=== PATIENT | male | born 1965 | race Caucasian/White ===

== ENCOUNTER 2020-08-15 23:03 | Inpatient (IN) | payer OTHER ==
[~2020-08-15] VITALS: Ht 172.7 cm; Wt 106.9 kg
[~2020-08-15 23:03] MED LIST: CARV12.544 PO; CEPH500C PO; CHOL20002 PO; CLO01T PO; CLOP75TA41 PO; FURO40TA4 PO; GLIP10TA9 PO; HYDR50TA15 PO; INSRTEST SC; INSUINJ48 SC; LEVO50TA7 PO; METF-370 PO; METO25TA5 PO; POTA10TA51 PO; ROSU10TA16 PO
[2020-08-15] MEDS ORDERED: cloNIDine HCL 0.1 MG TAB PO ONE (23:30)
[2020-08-15 23:58] LABS: Basophils # (auto) 0.1 10 ^3/uL (0-0.2); Basophils % (auto) 0.9 % (0.0-2.0); Eosinophils # (auto) 0.1 10 ^3/uL (0-0.8); Eosinophils % (auto) 0.8 % (0.0-7.0); Hemoglobin 13.7 g/dL (13.5-17.5); Lymphocytes # (auto) 1.6 10 ^3/uL (0.4-5.4); Lymphocytes % (auto) 13.4 % (10.0-50.0); Mean Corpuscular Hemoglobin 25.8 pg (28.0-32.0); Mean Corpuscular Hgb Conc. 32.5 g/dL (32.0-36.0); Mean Corpuscular Volume 79.4 fL (80.0-100.0); Monocytes # (auto) 1.3 10 ^3/uL (0-1.3); Monocytes % (auto) 10.6 % (0.0-12.0); Neutrophils % (auto) 74.3 % (37.0-80.0); Platelet Count (auto) 192 10^3/uL (140-450); Red Blood Cells 5.29 10^6/uL (4.5-5.90); Red Cell Distribution Width 16.8 % (11.8-14.3); White Blood Cell 12.2 10^3/uL (4.4-10.8)
[2020-08-16 00:17] LABS: Albumin 3.6 g/dL (3.4-5.0); BUN/Creatinine Ratio 15.7; Calcium 9.3 mg/dL (8.5-10.1)
[2020-08-16 00:22] LABS: Bilirubin, Total 0.3 mg/dL (0.2-1.0); Total Protein 7.5 g/dL (6.4-8.2)
[2020-08-16 00:27] LABS: INR 1.15 (0.9-1.15)
[2020-08-16] MEDS ORDERED: IOHEXOL 350 MG/ML 100ML IJ ONE (02:26)
[2020-08-16] MEDS ORDERED: MORPHINE SULFATE 4 MG/ML SYR/VIAL IV ONE (03:15)
[2020-08-16] MEDS ORDERED: ONDANSETRON HCL 4 MG/2 ML VIAL IV ONE (03:15)
[2020-08-16 05:46] LABS: Urine Bacteria FEW /hpf (None Seen); Urine Blood Negative /uL (Negative); Urine Mucus FEW (None Seen); Urine Specific Gravity 1.025 (1.001-1.035); Urine WBC 1 /hpf (0 - 3)
[2020-08-16] MEDS ORDERED: NITROGLYCERIN 0.4 MG SL TAB SL PRN (07:30)
[2020-08-16] MEDS ORDERED: TEMAZEPAM 15 MG CAP PO PRN (07:30)
[2020-08-16] MEDS ORDERED: DOCUSATE SOD 100 MG CAP PO PRN (07:30)
[2020-08-16] MEDS ORDERED: MORPHINE SULF INJ 2 MG/ML SYRINGE 1ML IV PRN (07:30)
[2020-08-16] MEDS ORDERED: DEXTROSE (50%) 50ML SYRG IV PRN (07:30)
[2020-08-16] MEDS ORDERED: MET25T PO (07:34)
[2020-08-16] MEDS ORDERED: FUROSEMIDE 40 MG/4 ML VIAL IV ONE (07:45)
[2020-08-16 07:56] LABS: Cholesterol 111 mg/dL (< 200)
[2020-08-16 07:58] LABS: HDL Cholesterol 37 mg/dL (40-59); LDL Cholesterol 64 mg/dL (< 100); Triglycerides 114 mg/dL (< 150)
--- NOTE | 2020-08-16 09:55 | NUR ---
Telemetry admit from ER KAROLINA GRIMES admitted to Telemetry unit after SBAR received. Patient oriented to CHRISTY LUA, RN primary RN, unit, room, bed, and unit policies regarding patient care and visiting hours. Patient now on continuous telemetry monitoring, tele box # [id number] and telemetry reading on arrival to unit is sinus bradycardia. Patient weighed by bedscale and encouraged to call if they need something. All questions and concerns addressed, patient verbalized understanding.
[2020-08-16] MEDS ORDERED: LEVOTHYROXINE SODIUM 50 MCG TAB PO SCH (10:00)
[2020-08-16] MEDS ORDERED: OPTISON 3ml Vial for INJ IV ONE (10:48)
[2020-08-16 11:01] VITALS: BP 141/62
[2020-08-16] MEDS: FAMOTIDINE 20 MG TAB PO SCH ×2 (11:01→20:58)
[2020-08-16] MEDS: CARVEDILOL 12.5 MG TAB PO SCH ×2 (11:01→20:58)
--- NOTE | 2020-08-16 11:12 | NUR ---
OPTISON ADMINISTERED WITH PRESCHOOL TEACHER AT BEDSIDE. ADMINISTERED 2ML OF MEDICATION. PATIENT TOLERATED WELL. NO SIGNS OR SYMPTOMS OF ADVERSE EFFECTS.
[2020-08-16] MEDS: ACCU-CHEK COMFORT CURVE STRIP VI SCH ×3 (11:58→21:55)
[2020-08-16] MEDS: InsuLIN REG 1unit/0.01ml Soln (100units/ml) SC SCH ×3 (11:58→21:54)
[2020-08-16 12:32] VITALS: BP 148/78
[2020-08-16 12:44] VITALS: BP 148/78
--- NOTE | 2020-08-16 15:30 | NUR ---
WOUND CARE NOTE: WOUND CARE IN TO SEE PATIENT PER WOUND CARE REQUEST. PATIENT ADMITTED TO [facility] FOR NSTEMI AND BILATERAL FLANK PAIN. BEDSIDE NURSE NOTED SKIN INTEGRITY ISSUES UPON ADMISSION. PHOTOGRAPHS TAKEN AT THAT TIME FOR REFERENCE. PATIENT ANANT SCORE IS 20. PATIENT NOTED TO HAVE MULTIPLE HEALING STASIS ULCERS ON BILATERAL LOWER LEGS. THERAHONEY AND OPTIFOAM GENTLE DRESSING APPLIED TO HEALING WOUND ON RIGHT FELIZ. RECOMMEND: DAILY/PRN DRESSING CHANGE TO RIGHT FELIZ. SKIN/WOUND CARE PLAN. CONTINUED MONITORING BY WOUND CARE TEAM. Addendum: 08/16/20 at 1635 by ANGELINA BAUMAN RN RN Amended: Links added.
[2020-08-16 16:38] VITALS: BP 156/84
--- NOTE | 2020-08-16 19:29 | NUR ---
ENDORSED CARE TO NOC SHIFT RN
--- NOTE | 2020-08-16 20:00 | NUR ---
Opening Shift Note Assumed care of patient, awake and alert. No S/S of distress/SOB or pain. Instructed on POC and to call for assist PRN, will continue to monitor for changes Q1hr and PRN.
[2020-08-16] MEDS: MORPHINE SULFATE 4 MG/ML SYR/VIAL IV PRN (20:57)
[2020-08-16] MEDS: ATORVASTATIN 20 MG TAB PO SCH (20:58)
[2020-08-16] MEDS: INSULIN LANTUS (GLARGINE) 1 /0.01ml (100units/ml) SC SCH (21:55)
[2020-08-16 22:00] VITALS: BP 161/79
[2020-08-17 05:00] VITALS: BP 154/78
[2020-08-17] MEDS: MORPHINE SULFATE 4 MG/ML SYR/VIAL IV PRN ×3 (05:56→19:46)
[2020-08-17] MEDS: ACCU-CHEK COMFORT CURVE STRIP VI SCH ×4 (05:57→21:30)
[2020-08-17] MEDS: InsuLIN REG 1unit/0.01ml Soln (100units/ml) SC SCH ×4 (06:09→21:29)
[2020-08-17] MEDS: LEVOTHYROXINE SODIUM 50 MCG TAB PO SCH (06:11)
--- NOTE | 2020-08-17 07:31 | NUR ---
Report given to Luli Smith, patient is resting no distress.
[2020-08-17] MEDS ORDERED: FUROSEMIDE 40 MG/4 ML VIAL IV ONE (07:45)
--- NOTE | 2020-08-17 07:54 | NUR ---
Opening Shift Note Assumed care of patient, awake and alertx4. No S/S of distress/SOB or pain. Instructed on POC and to call for assist PRN. Bed at lowest locked position and call light within reach. Will continue to monitor for changes Q1hr and PRN.
[2020-08-17 08:00] VITALS: BP 165/71
[2020-08-17 08:59] LABS: Basophils # (auto) 0.1 10 ^3/uL (0-0.2); Eosinophils # (auto) 0.2 10 ^3/uL (0-0.8); Neutrophils # (auto) 6.1 10 ^3/uL (1.6-8.6)
[2020-08-17 09:00] VITALS: BP 165/71
[2020-08-17 09:01] LABS: Basophils % (auto) 0.7 % (0.0-2.0); Hematocrit 38.3 % (41.0-53.0); Hemoglobin 12.7 g/dL (13.5-17.5); Lymphocytes # (auto) 1.1 10 ^3/uL (0.4-5.4); Lymphocytes % (auto) 13.8 % (10.0-50.0); Mean Corpuscular Hemoglobin 25.8 pg (28.0-32.0); Mean Corpuscular Hgb Conc. 33.1 g/dL (32.0-36.0); Mean Corpuscular Volume 77.9 fL (80.0-100.0); Monocytes # (auto) 0.8 10 ^3/uL (0-1.3); Monocytes % (auto) 10.1 % (0.0-12.0); Neutrophils % (auto) 73.4 % (37.0-80.0); Platelet Count (auto) 217 10^3/uL (140-450); Red Blood Cells 4.92 10^6/uL (4.5-5.90); Red Cell Distribution Width 16.6 % (11.8-14.3); White Blood Cell 8.3 10^3/uL (4.4-10.8)
[2020-08-17 09:15] LABS: Albumin 3.3 g/dL (3.4-5.0); Calcium 8.9 mg/dL (8.5-10.1); Magnesium 2.5 mg/dL (1.6-2.6); Potassium 3.8 mmol/L (3.5-5.1)
[2020-08-17 09:21] LABS: BUN/Creatinine Ratio 12.4; Bilirubin, Total 0.4 mg/dL (0.2-1.0); Total Protein 6.7 g/dL (6.4-8.2)
[2020-08-17] MEDS: ONDANSETRON HCL 4 MG/2 ML VIAL IV PRN ×2 (09:40→19:47)
[2020-08-17] MEDS: CARVEDILOL 12.5 MG TAB PO SCH ×3 (09:42→21:17)
[2020-08-17] MEDS: ENOXAPARIN SOD 40 MG/0.4 ML SYRINGE SC SCH (09:42)
[2020-08-17] MEDS: FAMOTIDINE 20 MG TAB PO SCH ×2 (09:42→21:16)
[2020-08-17] MEDS: INSULIN LANTUS (GLARGINE) 1 /0.01ml (100units/ml) SC SCH ×2 (09:43→21:29)
[2020-08-17] MEDS ORDERED: SACUBITRIL-VALSARTAN 24mg/26mg TAB PO ONE (10:45)
[2020-08-17] MEDS ORDERED: cloNIDine HCL 0.1 MG TAB PO PRN (11:30)
[2020-08-17] MEDS ORDERED: FUROSEMIDE 20 MG/2 ML VIAL IV ONE (11:30)
[2020-08-17] MEDS ORDERED: NIFEdipine ER 30 MG TAB PO ONE (11:30)
--- NOTE | 2020-08-17 12:11 | NUR ---
PATIENT C/O ABDOMINAL PAIN, RATES IT 06/17. Will medicate per MD orders.
--- NOTE | 2020-08-17 12:28 | NUR ---
1215 08/17/20 - Faxed to [employer] at [phone], face sheet, order for life vest, H/P, ECHO, cardiology consult. Pending review and delivery to patient at bedside.
[2020-08-17] MEDS ORDERED: LACTULOSE 20Gm/30ML SOLN PO ONE (12:45)
--- NOTE | 2020-08-17 12:46 | NUR ---
PAIN RE-ASSESSMENT NO C/O PAIN, PAIN LEVEL 0. PATIENT IS COMFORTABLY RESTING IN BED, NO S/S OF DISTRESS/SOB NOTED /STATED.
[2020-08-17 13:00] VITALS: BP 152/76
[2020-08-17 17:00] VITALS: BP 162/80
[2020-08-17] MEDS: FUROSEMIDE 20 MG/2 ML VIAL IV SCH (17:57)
--- NOTE | 2020-08-17 18:58 | NUR ---
closing note patient is comfortably resting in bed, no s/s of distress/sob noted/stated. bed at lowest locked position and call light within reach. Will endorse care to NOC RN.
--- NOTE | 2020-08-17 20:00 | NUR ---
Opening Shift Note Assumed care of patient, awake and alert. No S/S of distress/SOB or pain. Instructed on POC and to call for assist PRN, will continue to monitor for changes Q1hr and PRN.Dressing in the right marquez dry and intact.
--- NOTE | 2020-08-17 21:00 | NUR ---
IV insertion IV access obtained, via clean sterile technique by inserting 22 gauge catheter at left forearm after attempt by Luli Francois. IV secured properly. No trauma to site. Patient tolerated procedure well.
--- NOTE | 2020-08-17 21:00 | NUR ---
IV removal IV DC'd with sterile technique in the right forearm, catheter fully intact. Pressure dressing applied to site. Patient tolerated procedure well. Discharged with aftercare instructions per MD. NOTE: i.v.line is leaking.
[2020-08-17] MEDS: ATORVASTATIN 20 MG TAB PO SCH (21:16)
[2020-08-17] MEDS: SACUBITRIL-VALSARTAN 24mg/26mg TAB PO SCH (21:30)
[2020-08-17 22:00] VITALS: BP 152/71
[2020-08-18 05:00] VITALS: BP 141/70
[2020-08-18] MEDS: FUROSEMIDE 20 MG/2 ML VIAL IV SCH ×2 (05:35→18:00)
[2020-08-18] MEDS: LEVOTHYROXINE SODIUM 50 MCG TAB PO SCH (06:20)
[2020-08-18] MEDS: ACCU-CHEK COMFORT CURVE STRIP VI SCH ×4 (06:21→22:24)
[2020-08-18] MEDS: InsuLIN REG 1unit/0.01ml Soln (100units/ml) SC SCH ×4 (06:24→22:25)
--- NOTE | 2020-08-18 07:00 | NUR ---
Dressing of the right marquez done as ordered, noted that the wound has small amount of pus in the middle of the wound.
--- NOTE | 2020-08-18 07:36 | NUR ---
Report given to Luli Smith, patient is resting no distress.
[2020-08-18 09:00] VITALS: BP 148/77
[2020-08-18] MEDS ORDERED: METOPROLOL SUCCINATE XL 50 MG TAB PO ONE (09:26)
[2020-08-18] MEDS: INSULIN LANTUS (GLARGINE) 1 /0.01ml (100units/ml) SC SCH ×2 (10:00→22:26)
[2020-08-18] MEDS: CARVEDILOL 12.5 MG TAB PO SCH ×2 (10:00→22:23)
[2020-08-18] MEDS: SACUBITRIL-VALSARTAN 24mg/26mg TAB PO SCH ×2 (10:00→22:23)
[2020-08-18] MEDS: ENOXAPARIN SOD 40 MG/0.4 ML SYRINGE SC SCH (10:00)
[2020-08-18] MEDS: NIFEdipine ER 30 MG TAB PO SCH (10:00)
[2020-08-18] MEDS: FAMOTIDINE 20 MG TAB PO SCH ×2 (10:00→22:24)
[2020-08-18] MEDS: MORPHINE SULFATE 4 MG/ML SYR/VIAL IV PRN ×3 (11:10→23:16)
[2020-08-18 13:00] VITALS: BP 151/71
--- NOTE | 2020-08-18 14:32 | NUR ---
1420 08/18/20 - [employer] patient services representative will visit patient today at bedside for vest fitting.
[2020-08-18 17:00] VITALS: BP 131/73
--- NOTE | 2020-08-18 19:30 | NUR ---
closing note patient is comfortably resting in bed, no s/s of distress/sob noted/stated. bed at lowest locked position and call light within reach. care endorsed to noc rn.
--- NOTE | 2020-08-18 19:30 | NUR ---
Opening Shift Note Assumed care of patient, awake and alert. No S/S of distress/SOB or pain. Updated on POC and to call for assist PRN, patient verbalized understanding. Bed in lowest position, call light within reach, will continue to monitor for changes Q1hr and PRN.
[2020-08-18 20:00] VITALS: BP 143/70
[2020-08-18] MEDS: ATORVASTATIN 20 MG TAB PO SCH (22:23)
[2020-08-18 22:30] VITALS: BP 143/70
[2020-08-19 05:26] VITALS: BP 142/68
--- NOTE | 2020-08-19 05:45 | NUR ---
Wound dressing changed as ordered
[2020-08-19] MEDS: ACCU-CHEK COMFORT CURVE STRIP VI SCH ×3 (05:46→17:00)
[2020-08-19] MEDS: FUROSEMIDE 20 MG/2 ML VIAL IV SCH (05:46)
[2020-08-19] MEDS: InsuLIN REG 1unit/0.01ml Soln (100units/ml) SC SCH ×3 (05:50→17:00)
[2020-08-19 06:56] LABS: Basophils # (auto) 0.1 10 ^3/uL (0-0.2); Basophils % (auto) 0.7 % (0.0-2.0); Eosinophils # (auto) 0.2 10 ^3/uL (0-0.8); Eosinophils % (auto) 2.8 % (0.0-7.0); Hematocrit 43.7 % (41.0-53.0); Hemoglobin 14.1 g/dL (13.5-17.5); Lymphocytes % (auto) 12.9 % (10.0-50.0); Mean Corpuscular Hemoglobin 25.6 pg (28.0-32.0); Mean Corpuscular Hgb Conc. 32.2 g/dL (32.0-36.0); Mean Corpuscular Volume 79.6 fL (80.0-100.0); Monocytes % (auto) 12.6 % (0.0-12.0); Neutrophils # (auto) 5.5 10 ^3/uL (1.6-8.6); Nucleated Red Blood Cells % 0.1 %; Platelet Count (auto) 225 10^3/uL (140-450); Red Blood Cells 5.49 10^6/uL (4.5-5.90); Red Cell Distribution Width 17.3 % (11.8-14.3); White Blood Cell 7.7 10^3/uL (4.4-10.8)
[2020-08-19] MEDS: LEVOTHYROXINE SODIUM 50 MCG TAB PO SCH (07:03)
[2020-08-19 07:16] LABS: Albumin 3.2 g/dL (3.4-5.0); Calcium 8.5 mg/dL (8.5-10.1)
[2020-08-19 07:21] LABS: BUN/Creatinine Ratio 14.4; Bilirubin, Total 0.4 mg/dL (0.2-1.0); Total Protein 7.1 g/dL (6.4-8.2)
--- NOTE | 2020-08-19 07:50 | NUR ---
OPENING NOTE ASSUMED CARE OF PT. ALERT AND ORIENTED. NO S/S OF SOB/DISTRESS NOTED. BED SET TO LOWEST POSITION/LOCKED, BEDSIDE RAILS UP X2, CALL LIGHT WITHIN REACH. INSTRUCTED PT TO CALL FOR ASSISTANCE. UPDATE ON POC. PT VERBALIZED UNDERSTANDING. WILL CONTINUE TO MONITOR Q1HR AND PRN.
[2020-08-19 09:00] VITALS: BP 164/72
[2020-08-19] MEDS: ENOXAPARIN SOD 40 MG/0.4 ML SYRINGE SC SCH (09:57)
[2020-08-19] MEDS: NIFEdipine ER 30 MG TAB PO SCH (09:58)
[2020-08-19] MEDS: FAMOTIDINE 20 MG TAB PO SCH (09:58)
[2020-08-19] MEDS: SACUBITRIL-VALSARTAN 24mg/26mg TAB PO SCH (09:58)
[2020-08-19] MEDS: CARVEDILOL 12.5 MG TAB PO SCH (09:58)
[2020-08-19] MEDS: INSULIN LANTUS (GLARGINE) 1 /0.01ml (100units/ml) SC SCH (10:03)
--- NOTE | 2020-08-19 10:43 | NUR ---
CARDIOLOGY PATIENT IS CLEARED FROM CARDIOLOGY FOR DISCHARGE.
--- NOTE | 2020-08-19 11:30 | NUR ---
CARDIO PAGED METAL BONDING PRESS OPERATOR, KITTY RE: TELE STRIP. PATIENT HAD A RUN OF GWENDOLYN WITH PVC'S AND A-FIB. AWAITING CALL BACK.
--- NOTE | 2020-08-19 11:44 | NUR ---
CARDIO SPOKE WITH MANAGER SHELLKITTY RE: TELE STRIP. PATIENT HAD A RUN OF GWENDOLYN WITH PVC'S AND A-FIB. PER MANAGER SHELL NO NEW ORDER GIVEN. WILL CONTINUE TO MONITOR.
[2020-08-19 13:00] VITALS: BP 137/61
--- NOTE | 2020-08-19 14:34 | NUR ---
Nutrition Assessment Est energy needs 6528-1342 kcal (14-18 kcal/kg BW 106.9kg) Est protein needs 70-91g (1-1.3g/kg IBW 70kg) Will monitor and reassess prn. Addendum: 08/19/20 at [address] Amended: Links added.
[2020-08-19 15:38] VITALS: BP 137/61
[2020-08-19 15:52] VITALS: BP 137/61
--- NOTE | 2020-08-19 16:43 | NUR ---
D/C Planning Per social service consult for home health safety evaluation. Faxed clinical information to [facility] beds at [facility]. Per Isabel with [facility] include [facility] beds at the [facility] they are unable to accept patient at this time. ARMAND Howard was informed in regards of contracted home health agencies.
--- NOTE | 2020-08-19 17:03 | NUR ---
Discharge Discharge instructions given as ordered. Patient is to follow up with Dr. Cadena on 09/01/2020 at 10: AM, [id number], [place] [address]. . All questions and concerns addressed. Patient verbalized understanding. IV removed with catheter intact, pressure dressing applied. Telemetry unit returned to ICU.
--- NOTE | 2020-08-19 17:39 | NUR ---
Patient taken to vehicle via wheelchair with all personal belongings, accompanied by staff and family member. No distress noted at time of departure.
--- NOTE | 2020-08-20 17:50 | NUR ---
D/C Planning [address] faxed clinical information to [facility] on 08/19/20. Toi with [facility] follow up and advised me he can accept patient and patient will be seen within 24-48hrs upon d/c day.
== END 2020-08-19 17:44 | disposition home health service (06) | DRG 280 ==
LOC: ER 23:06 → TELE 23:07 → TELE-WESTW 08-16 09:48
PROVIDERS: ADMIT Nurse Practitioner; ATTEND Nurse Practitioner
DX: I16.9 Hypertensive crisis, unspecified (principal); I21.A1 Myocardial infarction type 2; I50.23 Acute on chronic systolic (congestive) heart failure; I11.0 Hypertensive heart disease with heart failure; K80.20 Calculus of gallbladder without cholecystitis without obstruction; J45.909 Unspecified asthma, uncomplicated; E11.40 Type 2 diabetes mellitus with diabetic neuropathy, unspecified; E78.5 Hyperlipidemia, unspecified; E11.51 Type 2 diabetes mellitus with diabetic peripheral angiopathy without gangrene; E66.01 Morbid (severe) obesity due to excess calories; F17.210 Nicotine dependence, cigarettes, uncomplicated; I25.10 Atherosclerotic heart disease of native coronary artery without angina pectoris; Z79.4 Long term (current) use of insulin; Z82.49 Family history of ischemic heart disease and other diseases of the circulatory system; Z68.35 Body mass index [BMI] 35.0-35.9, adult; Z88.5 Allergy status to narcotic agent; Z88.8 Allergy status to other drugs, medicaments and biological substances; Z83.3 Family history of diabetes mellitus; Z95.1 Presence of aortocoronary bypass graft
CPT/HCPCS: 36415; 71045; 71275; 74176; 80053; 80061; 81001; 82150; 82962; 83036; 83690; 83735; 83880; 84436; 84443; 84484; 85025; 85379; 85610; 85730; 93005; 93306; 93926; 96374; 96375; G0378; J1815; J2405; Q9956

== ENCOUNTER 2020-12-12 15:04 | Inpatient (IN) | payer OTHER ==
[~2020-12-12] VITALS: Ht 172.7 cm; Wt 97.6 kg
[~2020-12-12 15:04] MED LIST changes: -CLOP75TA41 PO; +CLOP75TA70 PO; +MET25T PO
[2020-12-12 16:29] LABS: Basophils # (auto) 0.1 10 ^3/uL (0-0.2); Basophils % (auto) 0.5 % (0.0-2.0); Eosinophils # (auto) 0.1 10 ^3/uL (0-0.8); Eosinophils % (auto) 0.9 % (0.0-7.0); Hematocrit 36.7 % (41.0-53.0); Hemoglobin 12.2 g/dL (13.5-17.5); Lymphocytes # (auto) 1.2 10 ^3/uL (0.4-5.4); Lymphocytes % (auto) 12.8 % (10.0-50.0); Mean Corpuscular Hemoglobin 28.2 pg (28.0-32.0); Mean Corpuscular Hgb Conc. 33.1 g/dL (32.0-36.0); Mean Corpuscular Volume 85.1 fL (80.0-100.0); Monocytes % (auto) 10.9 % (0.0-12.0); Neutrophils # (auto) 7.1 10 ^3/uL (1.6-8.6); Neutrophils % (auto) 74.9 % (37.0-80.0); Platelet Count (auto) 243 10^3/uL (140-450); Red Blood Cells 4.32 10^6/uL (4.5-5.90); Red Cell Distribution Width 16.3 % (11.8-14.3); White Blood Cell 9.4 10^3/uL (4.4-10.8)
[2020-12-12 16:47] LABS: Albumin 3.6 g/dL (3.4-5.0); Calcium 9.3 mg/dL (8.5-10.1); Potassium 4.6 mmol/L (3.5-5.1)
[2020-12-12 16:52] LABS: BUN/Creatinine Ratio 14.6; Bilirubin, Total 0.3 mg/dL (0.2-1.0); Total Protein 7.4 g/dL (6.4-8.2)
[2020-12-12 20:07] LABS: INR 1.03 (0.9-1.15); Partial Thromboplastin Time 29.1 sec (23.0-31.2)
[2020-12-12] MEDS ORDERED: ONDANSETRON HCL 4 MG/2 ML VIAL IV ONE (22:30)
[2020-12-12] MEDS ORDERED: MORPHINE SULFATE 4 MG/ML SYR/VIAL IV ONE (22:45)
[2020-12-12] MEDS ORDERED: CARVEDILOL 12.5 MG TAB PO ONE (23:45)
[2020-12-12] MEDS ORDERED: DEXTROSE (50%) 50ML SYRG IV PRN (23:45)
[2020-12-12] MEDS ORDERED: hydrALAZINE HCL 25 MG TAB PO ONE (23:45)
[2020-12-12] MEDS ORDERED: ACETAMINOPHEN 325 MG TAB PO PRN (23:45)
[2020-12-13] MEDS: HYDROcodone-ACET 5/325MG TAB PO PRN ×3 (00:55→11:24)
[2020-12-13 05:31] LABS: Urine Bacteria FEW /hpf (None Seen); Urine Blood Negative /uL (Negative); Urine Hyaline Cast MOD /lpf (0 - 2); Urine Mucus FEW (None Seen); Urine Specific Gravity 1.022 (1.001-1.035); Urine WBC 2 /hpf (0 - 3)
[2020-12-13] MEDS ORDERED: hydrALAZINE HCL 25 MG TAB PO SCH (06:00)
[2020-12-13 06:15] LABS: Basophils # (auto) 0.1 10 ^3/uL (0-0.2); Basophils % (auto) 0.8 % (0.0-2.0); Eosinophils # (auto) 0.1 10 ^3/uL (0-0.8); Eosinophils % (auto) 0.8 % (0.0-7.0); Hematocrit 34.8 % (41.0-53.0); Hemoglobin 11.7 g/dL (13.5-17.5); Lymphocytes # (auto) 1.2 10 ^3/uL (0.4-5.4); Lymphocytes % (auto) 14.5 % (10.0-50.0); Mean Corpuscular Hemoglobin 28.3 pg (28.0-32.0); Mean Corpuscular Hgb Conc. 33.6 g/dL (32.0-36.0); Mean Corpuscular Volume 84.4 fL (80.0-100.0); Monocytes # (auto) 1.2 10 ^3/uL (0-1.3); Monocytes % (auto) 14.1 % (0.0-12.0); Neutrophils # (auto) 5.9 10 ^3/uL (1.6-8.6); Neutrophils % (auto) 69.8 % (37.0-80.0); Platelet Count (auto) 210 10^3/uL (140-450); Red Blood Cells 4.13 10^6/uL (4.5-5.90); Red Cell Distribution Width 16.1 % (11.8-14.3); White Blood Cell 8.4 10^3/uL (4.4-10.8)
[2020-12-13 06:32] LABS: BUN/Creatinine Ratio 11.9; Calcium 8.4 mg/dL (8.5-10.1); Potassium 4.2 mmol/L (3.5-5.1)
[2020-12-13] MEDS: InsuLIN REG 1unit/0.01ml Soln (100units/ml) SC SCH ×4 (07:00→21:48)
[2020-12-13] MEDS: ACCU-CHEK COMFORT CURVE STRIP VI SCH ×4 (07:00→21:49)
[2020-12-13] MEDS: LEVOTHYROXINE SODIUM 50 MCG TAB PO SCH (07:00)
[2020-12-13] MEDS ORDERED: CLOPIDOGREL BISULFATE 75 MG TAB PO SCH (10:00)
[2020-12-13] MEDS ORDERED: FAMOTIDINE 20 MG TAB PO SCH (10:00)
[2020-12-13] MEDS: FUROSEMIDE 40 MG TAB PO SCH (11:08)
[2020-12-13] MEDS: CARVEDILOL 12.5 MG TAB PO SCH ×2 (11:08→21:29)
[2020-12-13] MEDS ORDERED: BUME2TAB5 PO (11:32)
[2020-12-13] MEDS ORDERED: CLON0.2T PO (11:38)
[2020-12-13] MEDS ORDERED: ASPI-543 PO (11:43)
[2020-12-13] MEDS ORDERED: CARV12.544 PO (11:43)
[2020-12-13] MEDS ORDERED: APIX5TAB PO (11:43)
[2020-12-13] MEDS ORDERED: LOSA-39 PO (11:43)
[2020-12-13] MEDS ORDERED: METF-370 PO (11:43)
[2020-12-13] MEDS ORDERED: HYDR50TA15 PO (11:43)
[2020-12-13] MEDS ORDERED: POTA10TA51 PO (11:44)
[2020-12-13] MEDS ORDERED: cloNIDine HCL 0.1 MG TAB PO ONE (14:00)
[2020-12-13] MEDS ORDERED: IOHEXOL 300 MG/ML 100ML BOTTLE IJ ONE (15:33)
[2020-12-13] MEDS ORDERED: OMNIPAQUE ORAL SOLN 500ml 12mg/ml PO ONE (15:33)
[2020-12-13] MEDS ORDERED: CLOP75TA70 PO (16:52)
[2020-12-13 16:55] VITALS: BP 203/104
[2020-12-13] MEDS: hydrALAZINE HCL 25 MG TAB PO SCH ×2 (17:41→21:29)
[2020-12-13] MEDS: SUCRALFATE 1 GM/10 ML ORAL SUSP PO SCH ×2 (17:41→21:29)
[2020-12-13] MEDS: MORPHINE SULF INJ 2 MG/ML SYRINGE 1ML IV PRN (20:30)
[2020-12-13] MEDS: cloNIDine HCL 0.1 MG TAB PO SCH (21:29)
[2020-12-13] MEDS: ATORVASTATIN 20 MG TAB PO SCH (21:29)
[2020-12-13] MEDS: PANTOPRAZOLE 40 MG TAB PO SCH (21:30)
[2020-12-14] MEDS: MORPHINE SULF INJ 2 MG/ML SYRINGE 1ML IV PRN ×3 (01:01→18:30)
[2020-12-14] MEDS: hydrALAZINE HCL 25 MG TAB PO SCH ×3 (04:52→21:39)
[2020-12-14] MEDS: ONDANSETRON HCL 4 MG/2 ML VIAL IV PRN (04:53)
[2020-12-14 05:00] VITALS: BP 182/76
[2020-12-14] MEDS: ACCU-CHEK COMFORT CURVE STRIP VI SCH ×4 (05:41→21:14)
[2020-12-14] MEDS: LEVOTHYROXINE SODIUM 50 MCG TAB PO SCH (06:23)
[2020-12-14] MEDS: SUCRALFATE 1 GM/10 ML ORAL SUSP PO SCH ×4 (06:23→21:40)
[2020-12-14] MEDS: InsuLIN REG 1unit/0.01ml Soln (100units/ml) SC SCH ×4 (06:49→22:04)
[2020-12-14 07:40] LABS: Albumin 3.2 g/dL (3.4-5.0); Magnesium 1.9 mg/dL (1.6-2.6); Potassium 4.6 mmol/L (3.5-5.1)
[2020-12-14 07:45] LABS: BUN/Creatinine Ratio 10.1; Bilirubin, Total 0.4 mg/dL (0.2-1.0); Total Protein 6.7 g/dL (6.4-8.2)
[2020-12-14 08:30] VITALS: BP 153/77
[2020-12-14 09:00] VITALS: BP 153/77
[2020-12-14] MEDS: cloNIDine HCL 0.1 MG TAB PO SCH ×2 (09:04→21:40)
[2020-12-14] MEDS: PANTOPRAZOLE 40 MG TAB PO SCH ×2 (09:05→21:40)
[2020-12-14] MEDS: FUROSEMIDE 40 MG TAB PO SCH (09:05)
[2020-12-14] MEDS: CARVEDILOL 12.5 MG TAB PO SCH ×2 (09:05→21:40)
[2020-12-14] MEDS ORDERED: GOLYTELY 4L KIT PO ONE (11:45)
[2020-12-14] MEDS ORDERED: MAGNESIUM SULFATE 1GM/100ML 100 ML IV ONE (12:30)
[2020-12-14 13:00] VITALS: BP 148/72
[2020-12-14] MEDS ORDERED: IOHEXOL 300 MG/ML 100ML BOTTLE IJ ONE (15:01)
[2020-12-14 16:41] VITALS: BP 176/74
[2020-12-14] MEDS: HYDROcodone-ACET 5/325MG TAB PO PRN (21:00)
[2020-12-14] MEDS: ATORVASTATIN 20 MG TAB PO SCH (21:40)
[2020-12-14 22:00] VITALS: BP 142/71
[2020-12-15] VITALS (7 sets, daily range): BP systolic 136–183; BP diastolic 63–92
[2020-12-15] MEDS: MORPHINE SULF INJ 2 MG/ML SYRINGE 1ML IV PRN ×4 (01:59→22:51)
[2020-12-15] MEDS: ONDANSETRON HCL 4 MG/2 ML VIAL IV PRN (02:00)
[2020-12-15] MEDS: ACCU-CHEK COMFORT CURVE STRIP VI SCH ×4 (03:52→22:03)
[2020-12-15] MEDS: HYDROcodone-ACET 5/325MG TAB PO PRN ×2 (04:00→22:06)
[2020-12-15] MEDS: SUCRALFATE 1 GM/10 ML ORAL SUSP PO SCH ×4 (06:12→22:02)
[2020-12-15] MEDS: hydrALAZINE HCL 25 MG TAB PO SCH ×3 (06:12→22:01)
[2020-12-15] MEDS: LEVOTHYROXINE SODIUM 50 MCG TAB PO SCH (06:12)
[2020-12-15] MEDS: InsuLIN REG 1unit/0.01ml Soln (100units/ml) SC SCH ×4 (06:23→22:03)
[2020-12-15] MEDS ORDERED: LIDOCAINE VISCOUS 2% 15ML UD ONE (08:20)
[2020-12-15] MEDS ORDERED: diphenhdrAMINE HCL 50 MG/1 ML VL ONE (08:21)
[2020-12-15] MEDS: fentaNYL CITRATE 100 MCG/2 ML VL ONE ×2 (10:03→10:17)
[2020-12-15] MEDS: MIDAZOLAM HCL 5 MG/ML-1ML VIAL ONE ×2 (10:03→10:17)
[2020-12-15] MEDS ORDERED: hydrALAZINE HCL 20 MG/ML VL ONE (10:52)
[2020-12-15] MEDS ORDERED: hydrALAZINE HCL 20 MG/ML VL IV ONE (11:00)
[2020-12-15] MEDS ORDERED: LABETALOL HCL 5 MG/ML 4ML SYRINGE IV ONE (11:15)
[2020-12-15] MEDS: FUROSEMIDE 40 MG TAB PO SCH (11:58)
[2020-12-15] MEDS: PANTOPRAZOLE 40 MG TAB PO SCH ×2 (11:58→22:02)
[2020-12-15] MEDS: CARVEDILOL 12.5 MG TAB PO SCH ×2 (11:59→22:02)
[2020-12-15] MEDS: cloNIDine HCL 0.1 MG TAB PO SCH ×2 (11:59→22:02)
[2020-12-15] MEDS ORDERED: LOSARTAN POTASSIUM 50 MG TAB PO ONE (12:45)
[2020-12-15] MEDS: ATORVASTATIN 20 MG TAB PO SCH (22:02)
[2020-12-15] MEDS: TEMAZEPAM 15 MG CAP PO PRN (22:51)
[2020-12-16 05:00] VITALS: BP 146/62
[2020-12-16] MEDS: hydrALAZINE HCL 25 MG TAB PO SCH ×3 (05:57→21:51)
[2020-12-16] MEDS: SUCRALFATE 1 GM/10 ML ORAL SUSP PO SCH ×4 (06:25→21:51)
[2020-12-16] MEDS: InsuLIN REG 1unit/0.01ml Soln (100units/ml) SC SCH ×4 (06:25→21:57)
[2020-12-16] MEDS: LEVOTHYROXINE SODIUM 50 MCG TAB PO SCH (06:25)
[2020-12-16] MEDS: ACCU-CHEK COMFORT CURVE STRIP VI SCH ×4 (06:25→21:51)
[2020-12-16] MEDS: MORPHINE SULF INJ 2 MG/ML SYRINGE 1ML IV PRN ×2 (06:26→20:53)
[2020-12-16 06:47] LABS: Hematocrit 35.4 % (41.0-53.0); Hemoglobin 11.9 g/dL (13.5-17.5)
[2020-12-16 07:05] LABS: BUN/Creatinine Ratio 8.7; Calcium 8.8 mg/dL (8.5-10.1); Potassium 3.6 mmol/L (3.5-5.1)
[2020-12-16 08:03] VITALS: BP 190/91
[2020-12-16] MEDS: CARVEDILOL 12.5 MG TAB PO SCH ×2 (08:23→21:51)
[2020-12-16] MEDS: cloNIDine HCL 0.1 MG TAB PO SCH ×2 (08:23→21:51)
[2020-12-16] MEDS: PANTOPRAZOLE 40 MG TAB PO SCH ×2 (08:24→21:51)
[2020-12-16] MEDS: FUROSEMIDE 40 MG TAB PO SCH (08:24)
[2020-12-16] MEDS: LOSARTAN POTASSIUM 50 MG TAB PO SCH (08:24)
[2020-12-16] MEDS: HYDROcodone-ACET 5/325MG TAB PO PRN ×3 (08:27→23:10)
[2020-12-16 12:30] VITALS: BP 139/72
[2020-12-16] MEDS: ATORVASTATIN 20 MG TAB PO SCH (21:51)
[2020-12-16 22:00] VITALS: BP 184/88
[2020-12-16] MEDS: TEMAZEPAM 15 MG CAP PO PRN (23:10)
[2020-12-17] VITALS (13 sets, daily range): BP systolic 137–186; BP diastolic 70–101
[2020-12-17] MEDS: MORPHINE SULF INJ 2 MG/ML SYRINGE 1ML IV PRN ×3 (04:07→20:10)
[2020-12-17] MEDS: hydrALAZINE HCL 25 MG TAB PO SCH ×3 (06:00→22:10)
[2020-12-17] MEDS: SUCRALFATE 1 GM/10 ML ORAL SUSP PO SCH ×4 (06:42→22:10)
[2020-12-17] MEDS: ACCU-CHEK COMFORT CURVE STRIP VI SCH ×4 (06:42→22:12)
[2020-12-17] MEDS: InsuLIN REG 1unit/0.01ml Soln (100units/ml) SC SCH ×4 (06:42→22:26)
[2020-12-17] MEDS: LEVOTHYROXINE SODIUM 50 MCG TAB PO SCH (06:42)
[2020-12-17 07:03] LABS: Hematocrit 33.9 % (41.0-53.0); Hemoglobin 11.7 g/dL (13.5-17.5)
[2020-12-17 07:25] LABS: Potassium 3.7 mmol/L (3.5-5.1)
[2020-12-17] MEDS: PANTOPRAZOLE 40 MG TAB PO SCH ×2 (09:33→22:12)
[2020-12-17] MEDS: LOSARTAN POTASSIUM 50 MG TAB PO SCH (09:33)
[2020-12-17] MEDS: cloNIDine HCL 0.1 MG TAB PO SCH ×2 (09:34→22:11)
[2020-12-17] MEDS: CARVEDILOL 12.5 MG TAB PO SCH ×2 (09:34→22:12)
[2020-12-17] MEDS: FUROSEMIDE 40 MG TAB PO SCH (09:35)
[2020-12-17] MEDS ORDERED: hydrALAZINE HCL 20 MG/ML VL IV PRN (10:30)
[2020-12-17] MEDS: ONDANSETRON HCL 4 MG/2 ML VIAL IV PRN (10:55)
[2020-12-17] MEDS ORDERED: MIDAZOLAM HCL 1MG/1ML-2 ML VIAL IV ONE ×2 (11:00→14:15)
[2020-12-17] MEDS ORDERED: fentaNYL CITRATE 100 MCG/2 ML VL IV ONE ×2 (11:00→14:15)
[2020-12-17] MEDS ORDERED: GELATIN 1 SPONGE SIZE 50 TOP ONE (11:08)
[2020-12-17] MEDS ORDERED: LIDOCAINE 2%HCL (LOCAL ANESTH.) INJ 20ML MDV ONE (11:08)
[2020-12-17] MEDS: HYDROcodone-ACET 5/325MG TAB PO PRN ×2 (12:54→22:27)
[2020-12-17] MEDS: ATORVASTATIN 20 MG TAB PO SCH (22:12)
[2020-12-18] MEDS ORDERED: amLODIPine BESYLATE 5 MG TAB PO ONE (02:15)
[2020-12-18] MEDS: MORPHINE SULF INJ 2 MG/ML SYRINGE 1ML IV PRN ×3 (02:24→19:32)
[2020-12-18 04:12] VITALS: BP 144/72
[2020-12-18] MEDS: HYDROcodone-ACET 5/325MG TAB PO PRN ×2 (04:37→22:36)
[2020-12-18 05:00] VITALS: BP 139/60
[2020-12-18 05:48] LABS: Basophils # (auto) 0.1 10 ^3/uL (0-0.2); Basophils % (auto) 0.8 % (0.0-2.0); Eosinophils # (auto) 0.2 10 ^3/uL (0-0.8); Eosinophils % (auto) 2.3 % (0.0-7.0); Hematocrit 34.6 % (41.0-53.0); Hemoglobin 12.1 g/dL (13.5-17.5); Lymphocytes % (auto) 14.3 % (10.0-50.0); Mean Corpuscular Hemoglobin 29.1 pg (28.0-32.0); Mean Corpuscular Hgb Conc. 34.9 g/dL (32.0-36.0); Mean Corpuscular Volume 83.3 fL (80.0-100.0); Monocytes # (auto) 1.1 10 ^3/uL (0-1.3); Monocytes % (auto) 15.1 % (0.0-12.0); Neutrophils # (auto) 4.9 10 ^3/uL (1.6-8.6); Neutrophils % (auto) 67.5 % (37.0-80.0); Nucleated Red Blood Cells % 0.1 %; Platelet Count (auto) 267 10^3/uL (140-450); Red Blood Cells 4.15 10^6/uL (4.5-5.90); Red Cell Distribution Width 15.8 % (11.8-14.3); White Blood Cell 7.3 10^3/uL (4.4-10.8)
[2020-12-18 06:07] LABS: Potassium 3.8 mmol/L (3.5-5.1)
[2020-12-18 06:13] LABS: BUN/Creatinine Ratio 11.3; Calcium 8.8 mg/dL (8.5-10.1); Magnesium 2.3 mg/dL (1.6-2.6)
[2020-12-18] MEDS: hydrALAZINE HCL 25 MG TAB PO SCH ×3 (06:24→21:52)
[2020-12-18] MEDS: SUCRALFATE 1 GM/10 ML ORAL SUSP PO SCH ×4 (06:32→21:52)
[2020-12-18] MEDS: ACCU-CHEK COMFORT CURVE STRIP VI SCH ×4 (06:33→23:13)
[2020-12-18] MEDS: LEVOTHYROXINE SODIUM 50 MCG TAB PO SCH (06:33)
[2020-12-18] MEDS: InsuLIN REG 1unit/0.01ml Soln (100units/ml) SC SCH ×4 (06:34→23:15)
[2020-12-18 09:00] VITALS: BP 137/71
[2020-12-18] MEDS: amLODIPine BESYLATE 5 MG TAB PO SCH (10:00)
[2020-12-18] MEDS: LOSARTAN POTASSIUM 50 MG TAB PO SCH (10:00)
[2020-12-18] MEDS: PANTOPRAZOLE 40 MG TAB PO SCH ×2 (11:02→21:53)
[2020-12-18] MEDS: FUROSEMIDE 40 MG TAB PO SCH (11:02)
[2020-12-18] MEDS: CARVEDILOL 12.5 MG TAB PO SCH ×2 (11:03→21:53)
[2020-12-18] MEDS: cloNIDine HCL 0.1 MG TAB PO SCH ×2 (11:05→21:52)
[2020-12-18] MEDS: Glucerna Carbsteady SHAKE Vanilla 8oz PO SCH ×2 (11:06→18:08)
[2020-12-18 13:00] VITALS: BP 133/69
[2020-12-18] MEDS ORDERED: DEXTROSE (50%) 50ML SYRG IV PRN (16:30)
[2020-12-18] MEDS ORDERED: ENOXAPARIN SOD 40 MG/0.4 ML SYRINGE SC ONE (16:30)
[2020-12-18 17:19] VITALS: BP 141/67
[2020-12-18] MEDS: DOCUSATE SOD 100 MG CAP PO SCH (21:52)
[2020-12-18] MEDS: ATORVASTATIN 20 MG TAB PO SCH (21:53)
[2020-12-18 22:00] VITALS: BP 141/74
[2020-12-18] MEDS: INSULIN LANTUS (GLARGINE) 1 /0.01ml (100units/ml) SC SCH (23:14)
[2020-12-19] MEDS: MORPHINE SULF INJ 2 MG/ML SYRINGE 1ML IV PRN ×5 (03:59→22:16)
[2020-12-19 05:00] VITALS: BP 146/66
[2020-12-19] MEDS: ACCU-CHEK COMFORT CURVE STRIP VI SCH ×4 (06:08→23:35)
[2020-12-19] MEDS: hydrALAZINE HCL 25 MG TAB PO SCH ×3 (06:08→22:12)
[2020-12-19] MEDS: LEVOTHYROXINE SODIUM 50 MCG TAB PO SCH (06:09)
[2020-12-19] MEDS: SUCRALFATE 1 GM/10 ML ORAL SUSP PO SCH ×4 (06:09→22:13)
[2020-12-19] MEDS: InsuLIN REG 1unit/0.01ml Soln (100units/ml) SC SCH ×4 (06:09→23:40)
[2020-12-19] MEDS: HYDROcodone-ACET 5/325MG TAB PO PRN ×2 (06:10→23:42)
[2020-12-19 08:24] VITALS: BP 134/64
[2020-12-19] MEDS: Glucerna Carbsteady SHAKE Vanilla 8oz PO SCH ×2 (08:37→18:05)
[2020-12-19] MEDS: CARVEDILOL 12.5 MG TAB PO SCH ×2 (10:00→22:00)
[2020-12-19] MEDS: ENOXAPARIN SOD 40 MG/0.4 ML SYRINGE SC SCH (10:23)
[2020-12-19] MEDS: DOCUSATE SOD 100 MG CAP PO SCH ×2 (10:24→22:13)
[2020-12-19] MEDS: LOSARTAN POTASSIUM 50 MG TAB PO SCH (10:24)
[2020-12-19] MEDS: PANTOPRAZOLE 40 MG TAB PO SCH ×2 (10:24→22:15)
[2020-12-19] MEDS: FUROSEMIDE 40 MG TAB PO SCH (10:24)
[2020-12-19] MEDS: amLODIPine BESYLATE 5 MG TAB PO SCH (10:25)
[2020-12-19] MEDS: cloNIDine HCL 0.1 MG TAB PO SCH ×2 (10:40→22:13)
[2020-12-19 13:00] VITALS: BP 158/74
[2020-12-19] MEDS: ONDANSETRON HCL 4 MG/2 ML VIAL IV PRN (14:47)
[2020-12-19 16:10] VITALS: BP 137/63
[2020-12-19 21:45] VITALS: BP 153/70
[2020-12-19] MEDS: ATORVASTATIN 20 MG TAB PO SCH (22:15)
[2020-12-19] MEDS: INSULIN LANTUS (GLARGINE) 1 /0.01ml (100units/ml) SC SCH (23:41)
[2020-12-20] MEDS: MORPHINE SULF INJ 2 MG/ML SYRINGE 1ML IV PRN ×3 (03:42→12:02)
[2020-12-20 05:00] VITALS: BP 139/60
[2020-12-20 05:38] LABS: Basophils # (auto) 0.1 10 ^3/uL (0-0.2); Basophils % (auto) 0.7 % (0.0-2.0); Eosinophils # (auto) 0.1 10 ^3/uL (0-0.8); Eosinophils % (auto) 0.9 % (0.0-7.0); Hematocrit 35.4 % (41.0-53.0); Lymphocytes % (auto) 12.2 % (10.0-50.0); Mean Corpuscular Hemoglobin 28.3 pg (28.0-32.0); Mean Corpuscular Volume 83.2 fL (80.0-100.0); Monocytes # (auto) 1.3 10 ^3/uL (0-1.3); Neutrophils % (auto) 71.2 % (37.0-80.0); Nucleated Red Blood Cells % 0.1 %; Platelet Count (auto) 275 10^3/uL (140-450); Red Blood Cells 4.25 10^6/uL (4.5-5.90); Red Cell Distribution Width 15.8 % (11.8-14.3); White Blood Cell 8.4 10^3/uL (4.4-10.8)
[2020-12-20 06:03] LABS: Calcium 8.8 mg/dL (8.5-10.1); Potassium 4.2 mmol/L (3.5-5.1)
[2020-12-20 06:09] LABS: Bilirubin, Total 0.4 mg/dL (0.2-1.0); Total Protein 6.6 g/dL (6.4-8.2)
[2020-12-20] MEDS: ACCU-CHEK COMFORT CURVE STRIP VI SCH ×3 (06:20→17:42)
[2020-12-20] MEDS: hydrALAZINE HCL 25 MG TAB PO SCH ×3 (06:20→22:16)
[2020-12-20] MEDS: SUCRALFATE 1 GM/10 ML ORAL SUSP PO SCH ×4 (06:20→22:13)
[2020-12-20] MEDS: InsuLIN REG 1unit/0.01ml Soln (100units/ml) SC SCH ×3 (06:21→17:43)
[2020-12-20] MEDS: LEVOTHYROXINE SODIUM 50 MCG TAB PO SCH (06:21)
[2020-12-20] MEDS: Glucerna Carbsteady SHAKE Vanilla 8oz PO SCH ×2 (08:00→17:42)
[2020-12-20 09:00] VITALS: BP 137/77
[2020-12-20] MEDS: PANTOPRAZOLE 40 MG TAB PO SCH ×2 (09:58→22:18)
[2020-12-20] MEDS: ENOXAPARIN SOD 40 MG/0.4 ML SYRINGE SC SCH (09:59)
[2020-12-20] MEDS: DOCUSATE SOD 100 MG CAP PO SCH ×2 (09:59→22:13)
[2020-12-20] MEDS: CARVEDILOL 12.5 MG TAB PO SCH ×2 (10:00→22:00)
[2020-12-20] MEDS: cloNIDine HCL 0.1 MG TAB PO SCH ×2 (10:01→23:30)
[2020-12-20] MEDS: amLODIPine BESYLATE 5 MG TAB PO SCH (10:02)
[2020-12-20] MEDS: LOSARTAN POTASSIUM 50 MG TAB PO SCH (10:02)
[2020-12-20 13:00] VITALS: BP 164/77
[2020-12-20] MEDS: HYDROmorphone HCL 2 MG/ML VL IV PRN ×3 (13:05→22:13)
[2020-12-20 17:00] VITALS: BP 132/55
[2020-12-20 22:00] VITALS: BP 141/73
[2020-12-20] MEDS: INSULIN LANTUS (GLARGINE) 1 /0.01ml (100units/ml) SC SCH (22:25)
[2020-12-20] MEDS: ATORVASTATIN 20 MG TAB PO SCH (22:51)
[2020-12-21] MEDS: ACCU-CHEK COMFORT CURVE STRIP VI SCH ×5 (00:08→23:57)
[2020-12-21] MEDS: ONDANSETRON HCL 4 MG/2 ML VIAL IV PRN ×2 (00:09→20:45)
[2020-12-21] MEDS: InsuLIN REG 1unit/0.01ml Soln (100units/ml) SC SCH ×5 (00:14→23:57)
[2020-12-21] MEDS: HYDROmorphone HCL 2 MG/ML VL IV PRN ×3 (03:00→20:46)
[2020-12-21 05:00] VITALS: BP 139/64
[2020-12-21 06:03] LABS: Potassium 4.2 mmol/L (3.5-5.1)
[2020-12-21] MEDS: hydrALAZINE HCL 25 MG TAB PO SCH ×3 (06:03→22:35)
[2020-12-21 06:14] LABS: BUN/Creatinine Ratio 14.2; Calcium 9.4 mg/dL (8.5-10.1)
[2020-12-21] MEDS: SUCRALFATE 1 GM/10 ML ORAL SUSP PO SCH ×4 (07:01→22:35)
[2020-12-21] MEDS: LEVOTHYROXINE SODIUM 50 MCG TAB PO SCH (07:02)
[2020-12-21] MEDS: Glucerna Carbsteady SHAKE Vanilla 8oz PO SCH ×2 (08:00→17:31)
[2020-12-21 09:00] VITALS: BP 135/62
[2020-12-21] MEDS: DOCUSATE SOD 100 MG CAP PO SCH ×2 (09:54→22:37)
[2020-12-21] MEDS: PANTOPRAZOLE 40 MG TAB PO SCH ×2 (09:55→22:39)
[2020-12-21] MEDS: cloNIDine HCL 0.1 MG TAB PO SCH ×2 (09:56→22:36)
[2020-12-21] MEDS: CARVEDILOL 12.5 MG TAB PO SCH ×2 (09:56→22:38)
[2020-12-21] MEDS: LOSARTAN POTASSIUM 50 MG TAB PO SCH (09:57)
[2020-12-21] MEDS: amLODIPine BESYLATE 5 MG TAB PO SCH (09:57)
[2020-12-21] MEDS: ENOXAPARIN SOD 40 MG/0.4 ML SYRINGE SC SCH (09:58)
[2020-12-21] MEDS ORDERED: LACTULOSE 20Gm/30ML SOLN PO PRN (10:45)
[2020-12-21 12:40] VITALS: BP 145/67
[2020-12-21 16:45] VITALS: BP 122/56
[2020-12-21 20:00] VITALS: BP 147/69
[2020-12-21 22:00] VITALS: BP 147/69
[2020-12-21] MEDS: ATORVASTATIN 20 MG TAB PO SCH (22:38)
[2020-12-21] MEDS: HYDROcodone-ACET 5/325MG TAB PO PRN (22:40)
[2020-12-21] MEDS: INSULIN LANTUS (GLARGINE) 1 /0.01ml (100units/ml) SC SCH (22:41)
[2020-12-22] MEDS: HYDROmorphone HCL 2 MG/ML VL IV PRN ×5 (00:58→21:59)
[2020-12-22 05:00] VITALS: BP 125/69
[2020-12-22] MEDS: hydrALAZINE HCL 25 MG TAB PO SCH ×3 (06:19→21:54)
[2020-12-22] MEDS: ACCU-CHEK COMFORT CURVE STRIP VI SCH ×3 (06:19→17:38)
[2020-12-22] MEDS: SUCRALFATE 1 GM/10 ML ORAL SUSP PO SCH ×4 (06:19→21:54)
[2020-12-22] MEDS: LEVOTHYROXINE SODIUM 50 MCG TAB PO SCH (06:19)
[2020-12-22] MEDS: InsuLIN REG 1unit/0.01ml Soln (100units/ml) SC SCH ×3 (06:25→17:39)
[2020-12-22] MEDS: Glucerna Carbsteady SHAKE Vanilla 8oz PO SCH ×2 (08:00→17:43)
[2020-12-22] MEDS: HYDROcodone-ACET 5/325MG TAB PO PRN ×3 (08:57→20:09)
[2020-12-22 09:00] VITALS: BP 132/63
[2020-12-22] MEDS: cloNIDine HCL 0.1 MG TAB PO SCH ×2 (10:00→21:56)
[2020-12-22] MEDS: CARVEDILOL 12.5 MG TAB PO SCH ×2 (10:00→21:55)
[2020-12-22] MEDS: ENOXAPARIN SOD 40 MG/0.4 ML SYRINGE SC SCH (11:05)
[2020-12-22] MEDS: PANTOPRAZOLE 40 MG TAB PO SCH ×2 (11:05→21:55)
[2020-12-22] MEDS: DOCUSATE SOD 100 MG CAP PO SCH ×2 (11:05→21:55)
[2020-12-22] MEDS: LOSARTAN POTASSIUM 50 MG TAB PO SCH (11:08)
[2020-12-22] MEDS: amLODIPine BESYLATE 5 MG TAB PO SCH (11:08)
[2020-12-22 13:00] VITALS: BP 137/67
[2020-12-22 17:30] VITALS: BP 126/47
[2020-12-22] MEDS: ATORVASTATIN 20 MG TAB PO SCH (21:55)
[2020-12-22] MEDS: INSULIN LANTUS (GLARGINE) 1 /0.01ml (100units/ml) SC SCH (21:57)
[2020-12-22 22:00] VITALS: BP 187/79
[2020-12-23] MEDS: HYDROcodone-ACET 5/325MG TAB PO PRN ×2 (00:01→18:56)
[2020-12-23] MEDS: ONDANSETRON HCL 4 MG/2 ML VIAL IV PRN (00:01)
[2020-12-23] MEDS: ACCU-CHEK COMFORT CURVE STRIP VI SCH ×5 (00:04→23:56)
[2020-12-23] MEDS: InsuLIN REG 1unit/0.01ml Soln (100units/ml) SC SCH ×4 (00:09→18:07)
[2020-12-23 05:00] VITALS: BP 131/70
[2020-12-23] MEDS: hydrALAZINE HCL 25 MG TAB PO SCH ×3 (05:49→21:35)
[2020-12-23] MEDS: HYDROmorphone HCL 2 MG/ML VL IV PRN ×3 (05:50→16:21)
[2020-12-23] MEDS: SUCRALFATE 1 GM/10 ML ORAL SUSP PO SCH ×4 (06:11→21:33)
[2020-12-23] MEDS: LEVOTHYROXINE SODIUM 50 MCG TAB PO SCH (06:11)
[2020-12-23 09:00] VITALS: BP 155/72
[2020-12-23] MEDS: cloNIDine HCL 0.1 MG TAB PO SCH ×3 (10:00→21:36)
[2020-12-23] MEDS: CARVEDILOL 12.5 MG TAB PO SCH ×2 (10:00→21:37)
[2020-12-23] MEDS: Glucerna Carbsteady SHAKE Vanilla 8oz PO SCH ×2 (10:11→18:06)
[2020-12-23] MEDS: DOCUSATE SOD 100 MG CAP PO SCH ×2 (10:12→21:34)
[2020-12-23] MEDS: ENOXAPARIN SOD 40 MG/0.4 ML SYRINGE SC SCH (10:14)
[2020-12-23] MEDS: PANTOPRAZOLE 40 MG TAB PO SCH ×2 (10:14→21:34)
[2020-12-23] MEDS: amLODIPine BESYLATE 5 MG TAB PO SCH (10:28)
[2020-12-23] MEDS: LOSARTAN POTASSIUM 50 MG TAB PO SCH (10:28)
[2020-12-23 13:00] VITALS: BP 169/89
[2020-12-23] MEDS ORDERED: GADOTERATE MEG 7.5 MMOL/15ml INJ (0.5MMOL/ml) IV ONE ×2 (15:11→15:12)
[2020-12-23 16:49] VITALS: BP 163/73
[2020-12-23] MEDS: INSULIN LANTUS (GLARGINE) 1 /0.01ml (100units/ml) SC SCH (21:33)
[2020-12-23] MEDS: ATORVASTATIN 20 MG TAB PO SCH (21:34)
[2020-12-24] VITALS (24 sets, daily range): BP systolic 102–161; BP diastolic 47–82
[2020-12-24] MEDS: InsuLIN REG 1unit/0.01ml Soln (100units/ml) SC SCH ×4 (00:01→17:52)
[2020-12-24] MEDS: HYDROmorphone HCL 2 MG/ML VL IV PRN ×3 (00:02→20:39)
[2020-12-24 04:39] LABS: INR 0.97 (0.9-1.15)
[2020-12-24 04:40] LABS: Basophils # (auto) 0.1 10 ^3/uL (0-0.2); Basophils % (auto) 0.9 % (0.0-2.0); Eosinophils # (auto) 0.1 10 ^3/uL (0-0.8); Eosinophils % (auto) 1.5 % (0.0-7.0); Hematocrit 35.7 % (41.0-53.0); Hemoglobin 11.7 g/dL (13.5-17.5); Lymphocytes % (auto) 13.2 % (10.0-50.0); Mean Corpuscular Hemoglobin 27.9 pg (28.0-32.0); Mean Corpuscular Hgb Conc. 32.9 g/dL (32.0-36.0); Mean Corpuscular Volume 84.7 fL (80.0-100.0); Monocytes # (auto) 1.4 10 ^3/uL (0-1.3); Neutrophils # (auto) 5.2 10 ^3/uL (1.6-8.6); Neutrophils % (auto) 66.4 % (37.0-80.0); Platelet Count (auto) 234 10^3/uL (140-450); Red Blood Cells 4.21 10^6/uL (4.5-5.90); Red Cell Distribution Width 15.4 % (11.8-14.3); White Blood Cell 7.9 10^3/uL (4.4-10.8)
[2020-12-24 04:46] LABS: BUN/Creatinine Ratio 21.3; Calcium 9.1 mg/dL (8.5-10.1); Magnesium 2.5 mg/dL (1.6-2.6)
[2020-12-24] MEDS: hydrALAZINE HCL 25 MG TAB PO SCH ×2 (05:36→14:13)
[2020-12-24] MEDS: ACCU-CHEK COMFORT CURVE STRIP VI SCH ×3 (05:37→17:52)
[2020-12-24] MEDS: LEVOTHYROXINE SODIUM 50 MCG TAB PO SCH (06:27)
[2020-12-24] MEDS: SUCRALFATE 1 GM/10 ML ORAL SUSP PO SCH ×3 (06:27→17:51)
[2020-12-24] MEDS: Glucerna Carbsteady SHAKE Vanilla 8oz PO SCH ×2 (08:00→17:51)
[2020-12-24] MEDS: HYDROcodone-ACET 5/325MG TAB PO PRN ×2 (08:24→23:45)
[2020-12-24] MEDS ORDERED: LIDOCAINE 2%HCL (LOCAL ANESTH.) INJ 20ML MDV ONE (09:51)
[2020-12-24] MEDS: CARVEDILOL 12.5 MG TAB PO SCH (10:00)
[2020-12-24] MEDS: ENOXAPARIN SOD 40 MG/0.4 ML SYRINGE SC SCH (10:00)
[2020-12-24] MEDS ORDERED: GELATIN 1 SPONGE SIZE 50 TOP ONE (10:49)
[2020-12-24] MEDS: DOCUSATE SOD 100 MG CAP PO SCH (10:53)
[2020-12-24] MEDS: cloNIDine HCL 0.1 MG TAB PO SCH (10:53)
[2020-12-24] MEDS: amLODIPine BESYLATE 5 MG TAB PO SCH (10:55)
[2020-12-24] MEDS: LOSARTAN POTASSIUM 50 MG TAB PO SCH (10:55)
[2020-12-24] MEDS: PANTOPRAZOLE 40 MG TAB PO SCH (10:57)
[2020-12-24] MEDS ORDERED: MIDAZOLAM HCL 1MG/1ML-2 ML VIAL ONE (11:32)
[2020-12-24] MEDS ORDERED: fentaNYL CITRATE 100 MCG/2 ML VL ONE (11:32)
[2020-12-24] MEDS ORDERED: MIDAZOLAM HCL 1MG/1ML-2 ML VIAL IV ONE (13:45)
[2020-12-24] MEDS ORDERED: fentaNYL CITRATE 100 MCG/2 ML VL IV ONE (13:45)
[2020-12-25] MEDS: SUCRALFATE 1 GM/10 ML ORAL SUSP PO SCH ×5 (00:16→21:38)
[2020-12-25] MEDS: hydrALAZINE HCL 25 MG TAB PO SCH ×4 (00:16→21:42)
[2020-12-25] MEDS: DOCUSATE SOD 100 MG CAP PO SCH ×3 (00:17→21:41)
[2020-12-25] MEDS: CARVEDILOL 12.5 MG TAB PO SCH ×3 (00:17→21:41)
[2020-12-25] MEDS: cloNIDine HCL 0.1 MG TAB PO SCH ×3 (00:17→21:40)
[2020-12-25] MEDS: ATORVASTATIN 20 MG TAB PO SCH ×2 (00:18→21:41)
[2020-12-25] MEDS: PANTOPRAZOLE 40 MG TAB PO SCH ×3 (00:19→21:40)
[2020-12-25] MEDS: InsuLIN REG 1unit/0.01ml Soln (100units/ml) SC SCH ×5 (00:20→23:59)
[2020-12-25] MEDS: INSULIN LANTUS (GLARGINE) 1 /0.01ml (100units/ml) SC SCH ×2 (00:20→21:51)
[2020-12-25] MEDS: ACCU-CHEK COMFORT CURVE STRIP VI SCH ×5 (00:21→23:57)
[2020-12-25] MEDS: HYDROmorphone HCL 2 MG/ML VL IV PRN ×4 (02:16→21:06)
[2020-12-25 05:30] VITALS: BP 138/68
[2020-12-25] MEDS: LEVOTHYROXINE SODIUM 50 MCG TAB PO SCH (07:20)
[2020-12-25] MEDS: Glucerna Carbsteady SHAKE Vanilla 8oz PO SCH ×2 (08:00→18:24)
[2020-12-25 08:34] VITALS: BP 141/55
[2020-12-25] MEDS: HYDROcodone-ACET 5/325MG TAB PO PRN ×3 (09:18→23:57)
[2020-12-25] MEDS: LOSARTAN POTASSIUM 50 MG TAB PO SCH (09:20)
[2020-12-25] MEDS: amLODIPine BESYLATE 5 MG TAB PO SCH (09:22)
[2020-12-25] MEDS: ENOXAPARIN SOD 40 MG/0.4 ML SYRINGE SC SCH (09:24)
[2020-12-25 12:44] VITALS: BP 130/50
[2020-12-25 16:44] VITALS: BP 116/66
[2020-12-25 22:00] VITALS: BP 160/82
[2020-12-26] MEDS: HYDROmorphone HCL 2 MG/ML VL IV PRN ×5 (02:46→20:02)
[2020-12-26 05:00] VITALS: BP 127/63
[2020-12-26] MEDS: ACCU-CHEK COMFORT CURVE STRIP VI SCH ×3 (06:00→17:47)
[2020-12-26] MEDS: SUCRALFATE 1 GM/10 ML ORAL SUSP PO SCH ×4 (06:36→21:37)
[2020-12-26] MEDS: hydrALAZINE HCL 25 MG TAB PO SCH ×3 (06:37→21:36)
[2020-12-26] MEDS: LEVOTHYROXINE SODIUM 50 MCG TAB PO SCH (06:37)
[2020-12-26] MEDS: InsuLIN REG 1unit/0.01ml Soln (100units/ml) SC SCH ×3 (06:39→17:47)
[2020-12-26] MEDS: Glucerna Carbsteady SHAKE Vanilla 8oz PO SCH ×2 (08:00→17:51)
[2020-12-26 08:45] VITALS: BP 126/68
[2020-12-26] MEDS: CARVEDILOL 12.5 MG TAB PO SCH ×2 (09:14→21:38)
[2020-12-26] MEDS: PANTOPRAZOLE 40 MG TAB PO SCH ×2 (09:14→21:39)
[2020-12-26] MEDS: DOCUSATE SOD 100 MG CAP PO SCH ×2 (09:15→21:38)
[2020-12-26] MEDS: LOSARTAN POTASSIUM 50 MG TAB PO SCH (09:15)
[2020-12-26] MEDS: cloNIDine HCL 0.1 MG TAB PO SCH ×2 (09:16→21:37)
[2020-12-26] MEDS: HYDROcodone-ACET 5/325MG TAB PO PRN ×4 (09:16→22:38)
[2020-12-26] MEDS: amLODIPine BESYLATE 5 MG TAB PO SCH (09:17)
[2020-12-26] MEDS: ENOXAPARIN SOD 40 MG/0.4 ML SYRINGE SC SCH (09:20)
[2020-12-26 12:46] VITALS: BP 134/85
[2020-12-26 16:48] VITALS: BP 150/75
[2020-12-26] MEDS: INSULIN LANTUS (GLARGINE) 1 /0.01ml (100units/ml) SC SCH (21:22)
[2020-12-26] MEDS: ATORVASTATIN 20 MG TAB PO SCH (21:38)
[2020-12-26 22:00] VITALS: BP 131/71
[2020-12-27] MEDS: InsuLIN REG 1unit/0.01ml Soln (100units/ml) SC SCH ×4 (00:03→17:46)
[2020-12-27] MEDS: ACCU-CHEK COMFORT CURVE STRIP VI SCH ×4 (00:04→17:44)
[2020-12-27] MEDS: HYDROmorphone HCL 2 MG/ML VL IV PRN ×4 (02:23→20:26)
[2020-12-27] MEDS: HYDROcodone-ACET 5/325MG TAB PO PRN ×4 (04:38→22:44)
[2020-12-27 05:00] VITALS: BP 136/70
[2020-12-27] MEDS: hydrALAZINE HCL 25 MG TAB PO SCH ×3 (05:06→21:51)
[2020-12-27] MEDS: SUCRALFATE 1 GM/10 ML ORAL SUSP PO SCH ×4 (05:51→21:52)
[2020-12-27] MEDS: LEVOTHYROXINE SODIUM 50 MCG TAB PO SCH (05:51)
[2020-12-27] MEDS: Glucerna Carbsteady SHAKE Vanilla 8oz PO SCH ×2 (08:30→18:14)
[2020-12-27 09:35] VITALS: BP 125/66
[2020-12-27] MEDS: PANTOPRAZOLE 40 MG TAB PO SCH ×2 (09:53→21:54)
[2020-12-27] MEDS: CARVEDILOL 12.5 MG TAB PO SCH ×2 (09:54→21:53)
[2020-12-27] MEDS: DOCUSATE SOD 100 MG CAP PO SCH ×2 (09:54→21:53)
[2020-12-27] MEDS: LOSARTAN POTASSIUM 50 MG TAB PO SCH (09:55)
[2020-12-27] MEDS: cloNIDine HCL 0.1 MG TAB PO SCH ×2 (09:55→21:52)
[2020-12-27] MEDS: amLODIPine BESYLATE 5 MG TAB PO SCH (09:56)
[2020-12-27] MEDS: ENOXAPARIN SOD 40 MG/0.4 ML SYRINGE SC SCH (09:56)
[2020-12-27 13:00] VITALS: BP 146/71
[2020-12-27 16:59] VITALS: BP 128/55
[2020-12-27] MEDS: ATORVASTATIN 20 MG TAB PO SCH (21:54)
[2020-12-27] MEDS: INSULIN LANTUS (GLARGINE) 1 /0.01ml (100units/ml) SC SCH (22:03)
[2020-12-28] MEDS: HYDROmorphone HCL 2 MG/ML VL IV PRN ×4 (00:18→20:25)
[2020-12-28] MEDS: InsuLIN REG 1unit/0.01ml Soln (100units/ml) SC SCH ×5 (00:30→22:01)
[2020-12-28] MEDS: ACCU-CHEK COMFORT CURVE STRIP VI SCH ×5 (05:18→21:44)
[2020-12-28] MEDS: LEVOTHYROXINE SODIUM 50 MCG TAB PO SCH (06:04)
[2020-12-28] MEDS: SUCRALFATE 1 GM/10 ML ORAL SUSP PO SCH ×4 (06:04→21:41)
[2020-12-28] MEDS: hydrALAZINE HCL 25 MG TAB PO SCH ×3 (06:04→21:41)
[2020-12-28] MEDS: Glucerna Carbsteady SHAKE Vanilla 8oz PO SCH ×2 (08:00→17:46)
[2020-12-28 08:42] VITALS: BP 133/68
[2020-12-28] MEDS: cloNIDine HCL 0.1 MG TAB PO SCH ×2 (09:35→21:42)
[2020-12-28] MEDS: LOSARTAN POTASSIUM 50 MG TAB PO SCH (09:43)
[2020-12-28] MEDS: DOCUSATE SOD 100 MG CAP PO SCH ×2 (09:44→21:42)
[2020-12-28] MEDS: CARVEDILOL 12.5 MG TAB PO SCH ×2 (09:44→21:43)
[2020-12-28] MEDS: amLODIPine BESYLATE 5 MG TAB PO SCH (09:45)
[2020-12-28] MEDS: ENOXAPARIN SOD 40 MG/0.4 ML SYRINGE SC SCH (09:45)
[2020-12-28] MEDS: PANTOPRAZOLE 40 MG TAB PO SCH ×2 (09:45→21:43)
[2020-12-28] MEDS ORDERED: DEXTROSE (50%) 50ML SYRG IV PRN (12:30)
[2020-12-28] MEDS ORDERED: MORPHINE SULF 15mg ER tab PO ONE (12:30)
[2020-12-28 12:51] VITALS: BP 116/55
[2020-12-28 16:52] VITALS: BP 116/67
[2020-12-28] MEDS: ONDANSETRON HCL 4 MG/2 ML VIAL IV PRN (20:26)
[2020-12-28] MEDS: MORPHINE SULF 15mg ER tab PO SCH (21:43)
[2020-12-28] MEDS: ATORVASTATIN 20 MG TAB PO SCH (21:43)
[2020-12-28 22:00] VITALS: BP 143/75
[2020-12-28] MEDS: INSULIN LANTUS (GLARGINE) 1 /0.01ml (100units/ml) SC SCH (22:01)
[2020-12-29] MEDS: HYDROmorphone HCL 2 MG/ML VL IV PRN ×2 (00:45→05:07)
[2020-12-29 05:00] VITALS: BP 117/61
[2020-12-29 05:51] LABS: Basophils # (auto) 0.1 10 ^3/uL (0-0.2); Eosinophils # (auto) 0.1 10 ^3/uL (0-0.8); Eosinophils % (auto) 0.9 % (0.0-7.0); Hematocrit 31.5 % (41.0-53.0); Hemoglobin 10.6 g/dL (13.5-17.5); Lymphocytes # (auto) 1.1 10 ^3/uL (0.4-5.4); Lymphocytes % (auto) 10.8 % (10.0-50.0); Mean Corpuscular Hemoglobin 27.9 pg (28.0-32.0); Mean Corpuscular Hgb Conc. 33.6 g/dL (32.0-36.0); Monocytes # (auto) 1.5 10 ^3/uL (0-1.3); Monocytes % (auto) 14.7 % (0.0-12.0); Neutrophils # (auto) 7.5 10 ^3/uL (1.6-8.6); Neutrophils % (auto) 72.6 % (37.0-80.0); Nucleated Red Blood Cells % 0.1 %; Platelet Count (auto) 280 10^3/uL (140-450); Red Cell Distribution Width 15.4 % (11.8-14.3); White Blood Cell 10.4 10^3/uL (4.4-10.8)
[2020-12-29 05:58] LABS: Potassium 4.6 mmol/L (3.5-5.1)
[2020-12-29] MEDS: hydrALAZINE HCL 25 MG TAB PO SCH ×3 (06:00→21:19)
[2020-12-29 06:04] LABS: BUN/Creatinine Ratio 17.6
[2020-12-29] MEDS: ACCU-CHEK COMFORT CURVE STRIP VI SCH ×4 (06:22→21:42)
[2020-12-29] MEDS: LEVOTHYROXINE SODIUM 50 MCG TAB PO SCH (06:22)
[2020-12-29] MEDS: SUCRALFATE 1 GM/10 ML ORAL SUSP PO SCH ×4 (06:22→21:27)
[2020-12-29] MEDS: InsuLIN REG 1unit/0.01ml Soln (100units/ml) SC SCH ×4 (06:36→21:49)
[2020-12-29] MEDS: Glucerna Carbsteady SHAKE Vanilla 8oz PO SCH ×2 (08:00→17:55)
[2020-12-29 08:30] VITALS: BP 122/67
[2020-12-29] MEDS: DOCUSATE SOD 100 MG CAP PO SCH ×2 (09:42→21:17)
[2020-12-29] MEDS: cloNIDine HCL 0.1 MG TAB PO SCH ×2 (09:42→21:18)
[2020-12-29] MEDS: MORPHINE SULF 15mg ER tab PO SCH ×2 (09:43→21:17)
[2020-12-29] MEDS: PANTOPRAZOLE 40 MG TAB PO SCH ×2 (09:43→21:27)
[2020-12-29] MEDS: ENOXAPARIN SOD 40 MG/0.4 ML SYRINGE SC SCH (09:43)
[2020-12-29] MEDS: LOSARTAN POTASSIUM 50 MG TAB PO SCH (09:43)
[2020-12-29] MEDS: CARVEDILOL 12.5 MG TAB PO SCH ×2 (10:00→21:19)
[2020-12-29] MEDS: amLODIPine BESYLATE 5 MG TAB PO SCH (10:00)
[2020-12-29] MEDS: ONDANSETRON HCL 4 MG/2 ML VIAL IV PRN (12:20)
[2020-12-29 13:00] VITALS: BP 111/52
[2020-12-29 16:43] VITALS: BP 127/69
[2020-12-29] MEDS: ATORVASTATIN 20 MG TAB PO SCH (21:17)
[2020-12-29 22:00] VITALS: BP 137/58
[2020-12-29] MEDS: INSULIN LANTUS (GLARGINE) 1 /0.01ml (100units/ml) SC SCH (22:03)
[2020-12-30] MEDS: HYDROmorphone HCL 2 MG/ML VL IV PRN ×2 (00:14→06:23)
[2020-12-30 05:11] VITALS: BP 115/71
[2020-12-30] MEDS: hydrALAZINE HCL 25 MG TAB PO SCH ×2 (06:22→14:00)
[2020-12-30] MEDS: LEVOTHYROXINE SODIUM 50 MCG TAB PO SCH (06:23)
[2020-12-30] MEDS: SUCRALFATE 1 GM/10 ML ORAL SUSP PO SCH ×3 (06:23→18:24)
[2020-12-30] MEDS: InsuLIN REG 1unit/0.01ml Soln (100units/ml) SC SCH ×3 (06:26→18:25)
[2020-12-30] MEDS: ACCU-CHEK COMFORT CURVE STRIP VI SCH ×3 (06:27→17:00)
[2020-12-30] MEDS: Glucerna Carbsteady SHAKE Vanilla 8oz PO SCH ×2 (08:00→18:00)
[2020-12-30 09:00] VITALS: BP 133/62
[2020-12-30] MEDS: MORPHINE SULF 15mg ER tab PO SCH (10:00)
[2020-12-30] MEDS: cloNIDine HCL 0.1 MG TAB PO SCH (10:01)
[2020-12-30] MEDS: DOCUSATE SOD 100 MG CAP PO SCH (10:02)
[2020-12-30] MEDS: LOSARTAN POTASSIUM 50 MG TAB PO SCH (10:02)
[2020-12-30] MEDS: CARVEDILOL 12.5 MG TAB PO SCH (10:02)
[2020-12-30] MEDS: amLODIPine BESYLATE 5 MG TAB PO SCH (10:04)
[2020-12-30] MEDS: PANTOPRAZOLE 40 MG TAB PO SCH (10:04)
[2020-12-30] MEDS: HYDROcodone-ACET 5/325MG TAB PO PRN (10:05)
[2020-12-30] MEDS: ENOXAPARIN SOD 40 MG/0.4 ML SYRINGE SC SCH (10:05)
[2020-12-30 13:00] VITALS: BP 114/64
[2020-12-30] MEDS ORDERED: PANT40T PO (13:57)
[2020-12-30] MEDS ORDERED: DOCU100C10 PO (13:57)
[2020-12-30] MEDS ORDERED: SUCR1TAB22 PO (13:57)
== END 2020-12-30 18:30 | disposition home or self-care (01) | DRG 841 ==
LOC: ER 15:04 → OVERFLOW 23:43 → WEST WING 12-13 13:06 → TELE-WESTW 12-13 13:06 → WEST WING 12-13 13:12 → TELE-WESTW 12-17 23:00
PROVIDERS: ADMIT Nurse Practitioner; ATTEND Internal Medicine
PROC: 0DB68ZX Excision of Stomach, Via Natural or Artificial Opening Endoscopic, Diagnostic (ICD-10-PCS; principal; 2020-12-15 10:05)
PROC: 0DBM8ZZ Excision of Descending Colon, Via Natural or Artificial Opening Endoscopic (ICD-10-PCS; 2020-12-15 10:05)
PROC: 0WBH3ZX Excision of Retroperitoneum, Percutaneous Approach, Diagnostic (ICD-10-PCS; 2020-12-17)
PROC: 0FB13ZX Excision of Right Lobe Liver, Percutaneous Approach, Diagnostic (ICD-10-PCS; 2020-12-24)
DX: C77.2 Secondary and unspecified malignant neoplasm of intra-abdominal lymph nodes (principal); C78.7 Secondary malignant neoplasm of liver and intrahepatic bile duct; I50.22 Chronic systolic (congestive) heart failure; K80.20 Calculus of gallbladder without cholecystitis without obstruction; D64.9 Anemia, unspecified; E03.9 Hypothyroidism, unspecified; E11.9 Type 2 diabetes mellitus without complications; E66.9 Obesity, unspecified; E78.5 Hyperlipidemia, unspecified; J44.9 Chronic obstructive pulmonary disease, unspecified; K29.70 Gastritis, unspecified, without bleeding; K29.80 Duodenitis without bleeding; K63.5 Polyp of colon; Z20.822 Contact with and (suspected) exposure to COVID-19; Z88.8 Allergy status to other drugs, medicaments and biological substances; K59.00 Constipation, unspecified; F17.210 Nicotine dependence, cigarettes, uncomplicated; I25.10 Atherosclerotic heart disease of native coronary artery without angina pectoris; Z80.1 Family history of malignant neoplasm of trachea, bronchus and lung; Z82.49 Family history of ischemic heart disease and other diseases of the circulatory system; Z83.3 Family history of diabetes mellitus; Z95.1 Presence of aortocoronary bypass graft; Z68.32 Body mass index [BMI] 32.0-32.9, adult; I11.0 Hypertensive heart disease with heart failure
CPT/HCPCS: 10022; 36415; 43239; 45380; 71045; 71260; 74150; 74176; 74177; 74183; 76705; 76942; 77012; 80048; 80053; 80061; 81001; 82378; 82962; 83036; 83690; 83735; 83880; 84132; 84154; 84443; 84484; 85014; 85018; 85025; 85610; 85730; 86301; 87426; 93005; 96374; 96375; G0378; J1815; J2250; J2405; J3490